=== PATIENT | male | born 1955 | race Caucasian/White ===

== ENCOUNTER 2020-09-08 15:15 | Day surgery (SDC) | payer MEDICARE, BC ==
[2020-09-08] MEDS ORDERED: Phenylephrine 2.5% Ophth Soln 5 ML BOT FS SCH (15:45)
[2020-09-08] MEDS ORDERED: EPINEPHrine 0.3 MG in Ophthalmic Irrigation Solution 500 ML IRR SCH (15:45)
[2020-09-08] MEDS ORDERED: Cyclopentolate 1% Opth Drop 2 ML BOT FS SCH (15:45)
[2020-09-08] MEDS ORDERED: Phenylephrine 2.5% Ophth Soln 5 ML BOT ONE (16:09)
[2020-09-08] MEDS ORDERED: Cyclopentolate 1% Opth Drop 2 ML BOT ONE (16:09)
[2020-09-08] MEDS ORDERED: Fentanyl 100 MCG/2 ML VIAL ONE (17:52)
[2020-09-08] MEDS ORDERED: Midazolam HCl 2 mg/2 ml Vial ONE (17:52)
[2020-09-08] MEDS ORDERED: Lidocaine 1% (PF) 30 ML VIAL ONE (18:01)
[2020-09-08] MEDS ORDERED: Lidocaine 4% PF 5 ML AMP ONE (18:25)
[2020-09-08] MEDS ORDERED: CEFAZOLIN 1 GM VIAL ONE (18:25)
[2020-09-08] MEDS ORDERED: Maxitrol 0.1% Opth Oint 3.5 GM TUBE ONE (18:25)
[2020-09-08] MEDS ORDERED: PROPOFOL 200 MG/20 ML VIAL ONE (18:25)
[2020-09-08] MEDS ORDERED: Dexamethasone 20 MG/5 ML VIAL ONE (18:25)
[2020-09-08] MEDS ORDERED: Ondansetron PF 4 MG/2 ML Vial ONE (18:25)
[2020-09-08] MEDS ORDERED: Bupivacaine PF 0.75% SDV 10 ML ONE (18:25)
[2020-09-08] MEDS ORDERED: Triamcinolone 40 MG/ML VIAL ONE (18:25)
[2020-09-08] MEDS ORDERED: PHENYLEPHRINE-NS 100 MCG/ML 10 ML SYRINGE ONE (18:25)
[2020-09-08] MEDS ORDERED: Lidocaine 1% PF 5 ML VIAL ONE ×2 (18:25)
== END 2020-09-08 20:17 | disposition home or self-care (01) ==
LOC: SDC/OP 15:15
PROVIDERS: ATTEND Ophthalmology Retina Specialist
PROC: 08T43ZZ Resection of Right Vitreous, Percutaneous Approach (ICD-10-PCS; principal; 2020-09-08)
DX: H33.011 Retinal detachment with single break, right eye (principal); Z88.2 Allergy status to sulfonamides
CPT/HCPCS: 36416; 67025; J0171; J0690; J1100; J2001; J2250; J2405; J2704; J3010; J3301; J3490